=== PATIENT | female | born 2000 | race Caucasian/White ===

== ENCOUNTER 2021-03-18 18:20 | Outpatient (CLI) | payer OTHER, SELFPAY ==
[2021-03-18 19:53] LABS: SARS-CoV-2 RNA PCR Negative (Negative)
== END 2021-03-18 18:21 | disposition home or self-care (01) ==
LOC: CHSLAB 18:24
PROVIDERS: PCP Family Medicine; Visit Provider Family Medicine
DX: J02.9 Acute pharyngitis, unspecified (principal); Z20.822 Contact with and (suspected) exposure to COVID-19
CPT/HCPCS: 87081; 87880; C9803; U0003; U0005

== ENCOUNTER 2021-04-13 16:22 | Outpatient (CLI) | payer OTHER, SELFPAY ==
[2021-04-13 17:42] LABS: SARS-CoV-2 RNA PCR Positive (Negative)
== END 2021-04-13 16:23 | disposition home or self-care (01) ==
LOC: CHSLAB 16:24
PROVIDERS: PCP Family Medicine; Visit Provider Family Medicine
DX: U07.1 COVID-19 (principal)
CPT/HCPCS: C9803; U0003; U0005

== ENCOUNTER 2023-02-19 08:06 | Emergency (ER) | payer OTHER, SELFPAY ==
--- NOTE | ~2023-02-19 | CT_ITS ---
EXAMINATION: CT abdomen pelvis w con DATE: 02/19/2023 09:09 INDICATION: Generalized abdominal pain since 0400 hours TECHNIQUE: Computed tomography (CT) of the abdomen and pelvis was performed with 100 CC Omnipaque 350 intravenous contrast. Automated exposure control and iterative reconstruction technique were employe d. Exam dose: 910.32 mGy-cm total exam DLP. COMPARISON: None. FINDINGS: Prominent discoid atelectasis or scarring at the included base of the lingula. Normal heart size. No pericardial or pleural effusion. The liver, gallbladder, bile ducts, pancreas, pancreatic duct and spleen are unremarkable. Normal morphology of the adrenal glands. No renal mass lesion. Normal caliber of the abdominal aorta. No intraperitoneal or retroperitoneal or pelvic mass lesion or adenopathy or ascites. The uterus, adnexal areas and urinary bladder are unremarkable. 3 mm nonobstructing right renal calculus. No other urinary tract calculus or hydroureteronephrosis. The uterus and adnexal areas are unremarkable. There is slight free fluid in the posterior cul-de-sac which may be physiologic. The appendix is dilated up to 9 mm, with thickening of the wall, with minimal periappendiceal fat str anding. The findings are consistent with acute appendicitis. Included skeletal structures are unremarkable. IMPRESSION: Acute appendicitis; no perforation or abscess is evident 3 mm nonobstructing right renal calculus Reviewed, dictated and finalized at [facility] Reviewed, dictated and finalized at [facility].
[2023-02-19 08:08] VITALS: BP 153/86; PULSE 84; RESP 18; TEMP 36.6; O2SAT 98
[2023-02-19] MEDS: SODIUM CHLORIDE 0.9% IV 1,000 ML 999 ML IV CONT (08:31)
[2023-02-19] MEDS: KETOROLAC 30 MG/ML VIAL (*BKC) IV PUSH (08:32)
[2023-02-19] MEDS: ONDANSETRON INJ 4 MG/2 ML VIAL IV PUSH (08:32)
[2023-02-19 08:34] LABS: Basophils Absolute Auto 0.03 K/mm3 (0.00-0.10); Basophils Percent Auto 0.2 % (0.0-1.0); Eosinophils Absolute Auto 0.07 K/mm3 (0.02-0.50); Eosinophils Percent Auto 0.5 % (1.0-6.0); Hematocrit 40.3 % (35.0-49.0); Hemoglobin 13.4 g/dL (12.0-15.0); Immature Granulocyte Absolute 0.05 K/mm3 (0.00-0.00); Immature Granulocyte Percent A 0.4 % (0.0-0.0); Lymphocytes Absolute Auto 1.47 K/mm3 (1.10-4.50); Lymphocytes Percent Auto 10.7 % (18.0-42.0); Mean Corpuscular HGB Conc 33.3 g/dL (32.0-36.0); Mean Corpuscular Hemoglobin 29.8 pg (27.0-31.0); Mean Corpuscular Volume 89.6 fL (78.0-102.0); Mean Platelet Volume 11.5 fl (9.2-11.8); Monocytes Absolute Auto 0.66 K/mm3 (0.10-0.90); Monocytes Percent Auto 4.8 % (2.0-11.0); Neutrophils Absolute Auto 11.5 K/mm3 (1.7-7.2); Neutrophils Percent Auto 83.4 % (50.0-70.0); Platelet Count Result 156 K/mm3 (150-420); Red Cell Distribution Width 11.8 % (11.6-14.4); White Blood Count 13.7 K/mm3 (4.8-10.8)
[2023-02-19 08:36] LABS: Appearance Urine Clear (Clear); Bilirubin Urine Negative (Negative); Blood Urine 1+ (Negative); Color Urine Light Yellow (Yellow); Glucose Urine UA Negative (Negative); Ketones Urine Negative (Negative); Leukocyte Esterase Ur Trace LEU/UL (Negative); Nitrate Urine Negative (Negative); Protein Urine Negative (Negative); Specific Grav Ur 1.025 (1.010-1.020); Urobilinogen Urine 0.2 mg/dL (0.2-1.0)
[2023-02-19 08:38] LABS: Pregnancy On Board Control Positive; Urine Pregnancy Test Negative
[2023-02-19 08:42] LABS: Add Urine Microscopic? YES; Bacteria Urine Trace /hpf; RBC Urine 0-2 /hpf (0-2); Squamous Epithelial Cell Urine Moderate /hpf (Few)
[2023-02-19 08:49] LABS: INR 1.1; Partial Thromboplastin Time 26.7 SEC (23.90-30.70); Prothrombin Time 11.6 Seconds (9.50-12.10)
[2023-02-19 08:50] LABS: Alanine Aminotransferase 48 U/L (14-59); Albumin Level 3.8 g/dL (3.4-5.0); Alkaline Phosphatase 59 U/L (46-116); Anion Gap 11 mmol/L (8-16); Aspartate Amino Transferase 12 U/L (15-37); Bilirubin,Total 1.2 mg/dL (0.00-1.00); Blood Urea Nitrogen 12 mg/dL (7-18); Calcium 8.7 mg/dL (8.5-10.1); Carbon Dioxide 23 mmol/L (21-32); Chloride 107 mmol/L (98-108); Estimated CRCL calculation 145 ml/min; Estimated Glomerular Filt Rate > 60; Glucose 86 mg/dL (70-99); Lipase 17 U/L (16-77); Osmolality Calculated 290 mOsm/kg (285-295); Potassium 3.6 mmol/L (3.5-5.1); Sodium 141 mmol/L (136-145); Total Protein 7.3 g/dL (6.4-8.2)
[2023-02-19 08:55] LABS: Lactic Acid Reflex 0.4 mmol/L (0.4-2.0)
--- NOTE | 2023-02-19 09:20 | ED.ABDPAIN ---
HPI - Abdominal Pain General Chief Complaint: Abdominal Pain Stated Complaint: abdominal pain Time Seen by Provider: 02/19/23 08:12 Source: patient and family Mode of arrival: ambulatory Limitations: no limitations History of Present Illness HPI narrative: this 22-year-old female that presents with abdominal pain that started at 4:00 a.m. this morning and progressively worsened with some mild dysuria suprapubic and right lower quadrant discomfort with no flank pain no hematuria no fever chills no diarrhea or constipation. MD elicited complaint: abdominal pain Pertinent past history: none Onset (ago): hour(s) Pain Consistency: constant Location: periumbilical, RLQ and suprapubic Severity: moderate Pain scale (0-10): 6 Quality: aching Related Data Home Medications Medication Instructions Recorded Confirmed No Home Medications 02/19/23 02/19/23 Allergies Allergy/AdvReac Type Severity Reaction Status Date / Time No Known Allergies Allergy Verified 02/19/23 08:18 Review of Systems Review of Systems: All systems reviewed & are unremarkable except as noted in HPI and below PMFSH Past Medical History Medical History Patient denies medical problems Exam Const: General: healthy appearing Nutritional Appearance: well nourished Orientation/consciousness: patient oriented x3 Limitations: no limitations HENMT: Head: normal to inspection Eyes: Conjunctivae: conjunctivae normal Neck: Neck: normal visual inspection Chest: Chest palpation & inspection: normal inspection of the chest Resp: Effort & Inspection: normal respiratory effort Auscultation: clear to auscultation bilaterally Cardio: Rate: regular rate Rhythm: regular rhythm GI: GI Palp: Yes Soft to palpation and Yes Tenderness to palpation present (GI) : Other: suprapubic tenderness Back/Spine/Pelvis: Back: no CVA tenderness Skin: General skin exam: normal color Rashes: no rashes Neuro: General: patient oriented x3 and moves all extremities Extrem: General: normal to inspection Psych: Mental Status: mental status grossly normal Affect: normal affect Course Course Emergency Course: labs reviewed with patient and family are white count is elevated, and UA does show that she has urinary tract infection, patient was given IV Toradol and Zofran which helped relieve her pain and nausea and CT scan was reviewed with patient and family Which shows acute appendicitis, patient started on ceftriaxone IV and Flagyl and was given an initial dose of pain medication with 4mg of morphine. spoke to Dr. Dumont surgeon at [facility] at accepted the patient for transfer to [facility]. Vital Signs Vital signs: Vital Signs Temperature 36.6 C 02/19/23 08:08 Pulse Rate 84 02/19/23 08:08 Respiratory Rate 18 02/19/23 08:08 Blood Pressure 153/86 H 02/19/23 08:08 Pulse Oximetry 98 02/19/23 08:08 Oxygen Delivery Room Air 02/19/23 08:08 Temperature 36.6 C 02/19/23 08:08 Pulse Rate 84 02/19/23 08:08 Respiratory Rate 18 02/19/23 08:08 Blood Pressure 153/86 H 02/19/23 08:08 Pulse Oximetry 98 02/19/23 08:08 Oxygen Delivery Room Air 02/19/23 08:08 MDM - Abdominal Pain Lab Data 02/19/23 08:16 02/19/23 08:16 Labs: Lab Results 02/19/23 02/19/23 Range/Units 08:16 08:17 WBC 13.7 H (4.8-10.8) K/mm3 RBC 4.50 (4.20-5.40) M/mm3 Hgb 13.4 (12.0-15.0) g/dL Hct 40.3 (35.0-49.0) % MCV 89.6 (78.0-102.0) fL MCH 29.8 (27.0-31.0) pg MCHC 33.3 (32.0-36.0) g/dL RDW 11.8 (11.6-14.4) % Plt Count 156 (150-420) K/mm3 MPV 11.5 (9.2-11.8) fl Immature Gran % (Auto) 0.4 H (0.0-0.0) % Neut % (Auto) 83.4 H (50.0-70.0) % Lymph % (Auto) 10.7 L (18.0-42.0) % Eagle % (Auto) 4.8 (2.0-11.0) % Eos % (Auto) 0.5 L (1.0-6.0) % Baso % (Auto) 0.2 (0.0-1.0) % Lymph # (Auto) 1.47
[2023-02-19] MEDS: metroNIDAZOLE 500 MG/ISO 100ML 500 MG/100 ML BAG 100 MG IVPB (09:40)
[2023-02-19] MEDS: MORPHINE SULFATE (*CRX) 4 MG/ML INJ IV PUSH (09:42)
[2023-02-19 09:49] VITALS: BP 163/88; PULSE 82; RESP 20; O2SAT 100
[2023-02-19 11:02] VITALS: BP 145/82; PULSE 81; RESP 20; TEMP 36.7; O2SAT 100
== END 2023-02-19 11:25 | disposition short-term general hospital (02) ==
PROVIDERS: Emergency Provider Emergency Medicine; PCP Family Medicine
DX: K35.80 Unspecified acute appendicitis (principal); N30.00 Acute cystitis without hematuria
CPT/HCPCS: 36415; 74177; 80053; 81001; 81025; 83605; 83690; 85025; 85610; 85730; 96361; 96365; 96367; 96375; 99285; J0696; J1885; J2270; J2405; J7030; Q9967

== ENCOUNTER 2023-02-19 12:10 | Observation (INO) | payer OTHER, SELFPAY ==
[2023-02-19] VITALS (10 sets, daily range): BP systolic 121–155; BP diastolic 64–88; PULSE 67–92; RESP 14–20; TEMP 36.2–36.6; O2SAT 95–100; BMI 32.7
--- NOTE | 2023-02-19 12:25 | ADMGEN ---
This patient, Radha Lui, was admitted to 2 Medical Room 261-01. Patient/family oriented to hospital policies and general routines including ID bracelet, bed and alarms, visiting hours, pain management, procedures, bathroom and other care routines, personal items, smoking policy, room service/diet, and visiting hours. Report received from Mane from [facility] Information on how to activate the Rapid Response Team has been discussed. Patient/Family are encouraged to report perceived risks to care and to ask questions if they do not understand what they are told or what they should do.
--- NOTE | 2023-02-19 12:29 | PM.IMHP ---
H&P: HPI History of Present Illness Date/Time: 02/19/23 12:29 Chief Complaint: Acute appendicitis Narrative: Patient is an otherwise healthy 22-year-old female who presented to the [facility] Emergency Room this morning with a 6hour history of the sudden onset periumbilical abdominal pain. She denied any nausea or vomiting and no diarrhea. No fever at home. Workup in the emergency room and started [place] [address] scan abdomen pelvis showed a appendix which is dilated to 9mm in diameter with some thickening of the wall and some subtle periappendiceal inflammatory changes. This was consistent with acute appendicitis. Patient was transferred from [facility] to [facility] for further surgical management. She was given Rocephin and Flagyl for IV antibiotics at the emergency room prior to transfer. Review of Systems Review of Systems: The remainder of the review of systems to include constitutional, HEENT, cardiovascular, respiratory, GI, , integumentary, musculoskeletal, endocrine, immunologic, hematologic, psychiatric, and neurologic are all negative except for which is mentioned above in the HPI. [facility] Past Medical History Medical History Patient denies medical problems Meds Home Medications and Allergies Home Medications Medication Instructions Recorded Confirmed Type No Home Medications 02/19/23 02/19/23 History Allergies Allergy/AdvReac Type Severity Reaction Status Date / Time No Known Allergies Allergy Verified 02/19/23 08:18 Exam Const: General: comfortable and no acute distress Eyes: General: appearance normal, both eyes and all related structures Sclera: sclerae normal Pupils: Equal, round and reactive pupils present Neck: Neck: supple and no JVD Resp: Effort & Inspection: normal respiratory effort Auscultation: clear to auscultation bilaterally Cardio: Rate: regular rate Rhythm: regular rhythm GI: Other: Abdomen is soft moderately obese. Mild periumbilical tenderness with more pronounced tenderness in the right lower quadrant. No guarding or generalized peritoneal signs are noted. No masses appreciated no hernias are noted. Neuro: General: gait normal Speech: normal speech Motor exam (neuro): 5/5 motor strength present throughout Extrem: General: normal to inspection Psych: Mental Status: mental status grossly normal Affect: normal affect H&P: Results Imaging CT scan - abdomen: Radiologist's impression: EXAMINATION: CT abdomen pelvis w con DATE: 02/19/2023 09:09 INDICATION: Generalized abdominal pain since 0400 hours TECHNIQUE: Computed tomography (CT) of the abdomen and pelvis was performed with 100 CC Omnipaque 350 intravenous contrast. Automated exposure control and iterative reconstruction technique were employed. Exam dose:? 910.32 mGy-cm total exam DLP.? COMPARISON: None. FINDINGS: Prominent discoid atelectasis or scarring at the included base of the lingula. Normal heart size. No pericardial or pleural effusion. The liver, gallbladder, bile ducts, pancreas, pancreatic duct and spleen are unremarkable. Normal morphology of the adrenal glands. No renal mass lesion. Normal caliber of the abdominal aorta. No intraperitoneal or retroperitoneal or pelvic mass lesion or adenopathy or ascites. The uterus, adnexal areas and urinary bladder are unremarkable. 3 mm nonobstructing right renal calculus. No other urinary tract calculus or hydroureteronephrosis. The uterus and adnexal areas are unremarkable. There is slight free fluid in the posterior cul-de-sac which may be physiologic. The appendix is dilated up to 9 mm, with thickening of the wall, with minimal periappendiceal fat stranding. The findings are consistent with acute appendicitis. Included skeletal structures are unremarkable. IMPRESSION:? Acute appendicitis; no
--- NOTE | 2023-02-19 12:38 | WPDHPUPDATE1 ---
History and Physical Update Update Date/Time: 02/19/23 12:38 History and Physical has been reviewed, including an updated exam of the patient. There are NO changes in the patient's condition. Risks, benefits, and alternatives have been discussed and questions answered. Patient agrees to proceed with procedure.
[2023-02-19] MEDS: DEXTROSE 5%/0.9% SOD CHL 1,000 ML 100 ML IV CONT (13:42)
[2023-02-19] MEDS: MORPHINE SULFATE (*CRX) 2 MG/ML INJ IV PUSH (13:55)
--- NOTE | 2023-02-19 13:59 | P.PNAN_ITS ---
Anes - Eval Pre Procedure Procedure: Lap Appy Date/Time: 02/19/23 13:59 Surgeon: Dr Dumont Pre Op Diagnosis: appendicitis Patient Data Age: 22 Gender: F Height: 1.7 m Weight: 94.8 kg Allergies Allergy/AdvReac Type Severity Reaction Status Date / Time No Known Allergies Allergy Verified 02/19/23 08:18 Home Medications Medication Instructions Recorded Confirmed Type No Home Medications 02/19/23 02/19/23 History Patient hx anesthesia problems: none Family hx anesthesia problems: none Results Review: All pre-operative results and documents have been reviewed as part of the pre- operative evaluation. [facility] Past Medical History Medical History Patient denies medical problems Family History Family History Other Breast cancer Grandparent Skin cancer Social History Social History Smoking packs per day: 0.5 Smoking cigarettes per day: 10.0 Years smoked: 3 Smoking pack-years: 1.50 Smoking status: Former smoker Tobacco type: cigarettes Second hand tobacco smoke exposure: No Additional smoking assessment comments: former cigarette smoker, currently uses vape Alcohol intake: never Substance use: current Substance use type: marijuana Last use: 02/18/23 Lack of Transportation: No Lack of Food: Never True Current Housing: I Have Housing Concerned About Future Housing: No Difficulty Paying Gas/Electric Bills: No Difficulty Paying for Meds: No Currently Unemployed: No Education: High School Diploma/GED Difficulty w/ Childcare or Family Care: No Spiritual care concerns: No Exam Day of Procedure 02/19/23 13:59
--- NOTE | 2023-02-19 14:40 | PC.NURSE ---
Spoke with Gabriella in Pre-op and gave report on patient. Let her know that patient has not had type and screen done incase of emergency transfusion. Gabriella states she will speak with Provider when he is out of the OR.
--- NOTE | 2023-02-19 15:12 | P.PNAN_ITS ---
Anes - Eval Final PreProcedure Day of Procedure 02/19/23 15:12 Patient weight: overweight Heart: regular rate and rhythm Lungs: clear to auscultation Airway: Mallampati scale class II Neurological: alert and oriented Last oral intake: >/= 8 hours ASA classification: II Emergent: no Anesthetic plan: proceed Anesthesia type and monitoring: general ETT and standard monitoring Results Review: All pre-operative results and documents have been reviewed as part of the pre- operative evaluation. Informed Consent: The patient's anesthetic plan and its attendant risks and benefits were discussed with the patient/family/POA. Questions were solicited and answers provided to the satisfaction of the patient/family/POA.
[2023-02-19] MEDS: LIDO 1%/EPINEPHRINE 1:100,000 20 ML VIAL 10 ML INFILTRATE (16:18)
[2023-02-19] MEDS: LACTATED RINGERS 1,000 ML 30 ML IV CONT ×2 (16:49→17:24)
--- NOTE | 2023-02-19 16:57 | P.OP_ITS ---
Procedure Note - Detailed Date of Procedure 02/19/23 Pre-op Diagnosis Acute appendicitis Post-op Diagnosis Same Procedure Performed Laparoscopic appendectomy Surgeon Milad Dumont MD [employer] [facility] Anesthesia General Indications Patient is a 22-year-old female presented to outside emergency room with a 6hour history of a sudden onset of periumbilical abdominal pain. Workup in the emergency room [place] [address] scan abdomen pelvis showed a dilated appendix with some periappendiceal inflammation consistent with acute appendicitis. She was transferred [facility] for further surgical management. She presents now for emergent laparoscopic appendectomy. Findings The appendix was moderately inflamed in the distal 1/2. There is no perforation or gangrene of the appendix. There is no periappendiceal abscess. The base of the appendix appeared to be normal. Description of Procedure After informed consent was obtained patient brought to the operating room she was placed supine position and general endotracheal anesthesia was administered. The abdomen is then prepped and draped in usual sterile fashion after placement of a Lao catheter. Time-out was then performed correctly identifying the patient as well as the procedure to be performed verified she was already given scheduled IV antibiotics. Under the abdomen left upper quadrant likely a 5mm Optiview port. Once inside the abdomen I insufflated to adequate pneumoperitoneum of 15mmHg of CO2. I then placed a 5mm suprapubic trocar port, a 5mm right lower quadrant trocar port, and a 12mm periumbilical trocar port all under direct visualization. I was able to identify the appendix in the right lower quadrant the abdomen. The appendix was normal at the base but the distal 1/2 of the appendix was moderately inflamed. There is no gangrene or perforation of the appendix. There was no periappendiceal abscess. With a laparoscopic grasper held the appendix up made a defect through the mesoappendix just at the base with a laparoscopic dissecting instrument. A 45mm Endo-ISMAEL stapler was then used to divide the appendix flush with the cecum. A vascular reload to the laparoscopic stapler was then used to divide the mesoappendix. The appendix was then placed into Endo-Catch bag and brought out through the periumbilical trocar port site. The appendix was passed off table sent to pathology for examination. I then inspected both staple lines and they were both hemostatic. I then removed all the trocar ports under visualization all port sites appeared hemostatic. I then allowed the abdomen decompress. I then closed the 12mm periumbilical trocar port fascial defect utilizing 0 Vicryl suture placed in a figure-eight fashion. The skin edges not the port sites were then approximated utilizing a running subcuticular 4 Monocryl suture. The incisions were then cleaned the skin glue was applied. The patient tolerated the procedure well no complications. All sponges, needles, and instrument counts were correct at the end procedure. EBL was __ 10 _cc. The patient was awakened and taken to recovery in stable and satisfactory condition. Implants None Estimated Blood Loss 10 Drains No Packing No Pathology Yes (Appendix to pathology) Complications No immediate complications Condition Stable Disposition PACU [facility] Billing Surgery - Charge Forward: Surgery Billing
[2023-02-19] MEDS: fentaNYL CITRATE INJ (*CRX) 100 MCG/2 ML VIAL 25 MCG IV PUSH ×4 (17:09→17:26)
[2023-02-19] MEDS: ONDANSETRON INJ 4 MG/2 ML VIAL IV PUSH (17:22)
[2023-02-19] MEDS: diphenhydrAMINE HCl INJ 50 MG/ML VIAL 25 MG IV PUSH (17:37)
--- NOTE | 2023-02-19 19:38 | PC.NURSE ---
tried to contact Dr. Dumont through exchange, unable to get through. Left message and call back number with cell phone to clarify PRN roxicodone and morphine, both in for pain 7-10
[2023-02-19] MEDS: oxyCODONE HCL (*CRX) 5 MG TAB IR PO (20:40)
[2023-02-20] MEDS: oxyCODONE HCL (*CRX) 5 MG TAB IR PO ×2 (02:53→11:10)
[2023-02-20 06:00] VITALS: BP 154/92; PULSE 71; RESP 21; TEMP 36.1; O2SAT 100
[2023-02-20] MEDS: ACETAMINOPHEN 500 MG TABLET 1000 MG PO (06:39)
[2023-02-20 09:55] VITALS: BP 147/88; PULSE 95; RESP 16; TEMP 36.7; O2SAT 100
--- NOTE | 2023-02-20 10:17 | PM.PNGS ---
Progress Note: A&P Assessment and Plan (1) Acute appendicitis: Qualifiers: Acute appendicitis type: unspecified acute appendicitis type Qualified Code(s): K35.80 - Unspecified acute appendicitis Code(s): K35.80 - Unspecified acute appendicitis Status: Inactive Assessment and Plan: Patient is doing very well after laparoscopic appendectomy yesterday. He was discharged home today with follow-up in the office in about 2 weeks. Discharge instructions as per discharge orders. Subjective Subjective Date/Time Seen: 02/20/23 10:17 Post Op day: 1 (Status post laparoscopic) Interval history: Patient is doing well. Her right lower quadrant pain is not resolved. She is just having some mild tenderness around her laparoscopic port site incisions. No nausea or vomiting. She tolerated regular diet without difficulty. She has only been taking some Tylenol for postoperative pain. Exam GI: Other: Abdomen is soft and nondistended. Port site incisions are healing well without redness or drainage. Expected mild tenderness around the port sites but right lower quadrant tenderness has resolved. Objective Data Vital Signs Vital Signs: Vital Signs - 24 hr 02/19/23 14:00 02/19/23 16:49 02/19/23 17:00 Temperature 36.4 C L 36.6 C Pulse Rate 68 92 85 Respiratory Rate 16 17 20 Blood Pressure 121/64 155/80 H 149/83 H Pulse Oximetry 100 100 100 Oxygen Delivery Simple Face Mask Simple Face Mask Oxygen Flow Rate 6 6 02/19/23 17:05 02/19/23 17:15 02/19/23 17:30 Temperature Pulse Rate 73 75 Respiratory Rate 14 14 Blood Pressure 145/77 H 141/88 H Pulse Oximetry 99 95 Oxygen Delivery Room Air Room Air Room Air Oxygen Flow Rate 02/19/23 17:45 02/19/23 17:55 02/19/23 18:20 Temperature 36.2 C L Pulse Rate 79 76 67 Respiratory Rate 18 16 16 Blood Pressure 138/86 130/72 124/72 Pulse Oximetry 96 97 99 Oxygen Delivery Room Air Room Air Oxygen Flow Rate 02/19/23 18:46 02/19/23 22:25 02/19/23 20:30 Temperature 36.4 C 36.3 C L Pulse Rate 70 75 Respiratory Rate 16 20 Blood Pressure 135/74 150/82 H Pulse Oximetry 99 99 Oxygen Delivery Room Air Oxygen Flow Rate 02/20/23 06:00 02/20/23 08:10 02/20/23 09:55 Temperature 36.1 C L 36.7 C Pulse Rate 71 95 Respiratory Rate 21 H 16 Blood Pressure 154/92 H 147/88 H Pulse Oximetry 100 100 Oxygen Delivery Room Air Oxygen Flow Rate Intake/Output Intake/Output: Intake & Output 02/17/23 02/18/23 02/19/23 02/20/23 23:59 23:59 23:59 23:59 Intake Total 500 620 Output Total 150 900 Balance 350 -280 Meds/Results Medications: Active Medications Generic Name Dose Route Start Last Admin Trade Name Freq PRN Reason Stop Dose Admin Acetaminophen 1,000 mg 02/19/23 18:09 02/20/23 06:39 Acetaminophen 500 Mg Tablet PO 1,000 mg Q6H PRN Administration Mild Pain (1-3) or Fever Dextrose/Sodium Chloride 1,000 mls @ 100 mls/hr 02/19/23 12:25 02/19/23 13:42 Dextrose 5% Sodium Chloride 0.9% IV CONT 100 mls/hr .Q10H AURELIO Administration Morphine Sulfate 2 mg 02/19/23 12:22 02/19/23 13:55 Morphine Sulfate (*Crx) 2 Mg/Ml Inj IV PUSH 2 mg Q4H PRN Administration Pain Rated 7-10 Ondansetron HCl 4 mg 02/19/23 12:22 Ondansetron Inj 4 Mg/2 Ml Vial IV PUSH Q6H PRN Nausea And Vomiting Ondansetron HCl 4 mg 02/19/23 15:13 02/19/23 17:22 Ondansetron Inj 4 Mg/2 Ml Vial IV PUSH 4 mg ONCE PRN Administration Nausea Oxycodone HCl 5 mg 02/19/23 18:09 02/20/23 02:53 Oxycodone Hcl (*Crx) 5 Mg Tab Ir PO 5 mg Q6H PRN Administration Pain Rated 7-10
--- NOTE | 2023-02-22 13:14 | PM.DS ---
DS: Admitting Diagnosis Discharge Date 02/20/23 Admitting Diagnosis Acute appendicitis DS: Discharge Diagnosis Discharge Diagnosis (1) Acute appendicitis: Qualifiers: Acute appendicitis type: unspecified acute appendicitis type Qualified Code(s): K35.80 - Unspecified acute appendicitis Code(s): K35.80 - Unspecified acute appendicitis Status: Inactive DS: Summary Hospital Course Reason for hospitalization: Acute appendicitis Hospital Course: The patient initially presented to outside hospital emergency room where she complained of having the mid abdominal pain which eventually localized right lower quadrant of the abdomen. Workup included a CBC which showed a leukocytosis and then a CT scan and pelvis showed dilated appendix with some mild periappendiceal inflammatory changes. She was then transferred air some hospital likely admitted to the surgical floor. Once surgical floor examined her and she had a clinical exam consistent with acute appendicitis. She was then taken to the operating room later that day for an uncomplicated laparoscopic appendectomy. postoperatively shoe had a uneventful course to recovery room then back up to the surgical floor for routine observation. On the floor she was able to tolerate clear liquids and ambulate the bathroom that difficulty. Her pain was well controlled on oral pain medications. The next day examine her wounds and they were healing well without any evidence of wound complications in the port sites. She tolerated regular diet and was discharged home in improved condition. Status at Discharge Functional status at discharge: independent ambulation Time Spent with Patient Time attestation: Total time spent providing and/or coordinating discharge services: Exam Const: General: cooperative, healthy appearing and comfortable Resp: Effort & Inspection: normal respiratory effort and able to speak in complete sentences Cardio: Rate: regular rate Rhythm: regular rhythm GI: Other: Abdomen is soft and nondistended. Port site incisions are healing well without redness or drainage. No port site hernias. Right lower quadrant tenderness has resolved. Neuro: General: patient oriented x3 Cranial nerves: Yes CN's II-XII intact bilaterally Speech: normal speech Psych: Appearance: grossly normal and well kempt Mental Status: mental status grossly normal DS: Data Data Completed and Pending Pending studies at discharge: Pending at discharge 02/19/23 16:11 Surgical [PTH] Routine Discharge Plan Discharge Attending physician on discharge: Milad Dumont Consulting providers: Roger Martin; Zena Casey Discharging Clinician: Milad Dumont Patient Disposition: Home, Self-Care Activity: may shower and no straining Diet: regular Wound Care Instructions: remove dressing to shower Discharge Instructions: May discharge home when tolerating regular diet and pain is okay on oral pain medications. Must be afebrile and incisions healing without any redness or drainage. No lifting more than 10 to 15 lb for 2 weeks. May shower but do not soak the incision under water for 2 weeks. Follow-up in the office in 2 weeks. May use Tylenol ibuprofen [id number] for pain as needed at home. Prescription for narcotic pain medications sent to pharmacy and patient may worm picker the medications if she wishes. Patient Instructions: Antibiotic Form Stand Alone Forms: General Discharge Information Follow-up/Referrals: Milad Dumont MD [Physician] - (Follow-up with Dr. Dumont the office in 2 weeks. Call [phone] for an appointment.) Discharge Medications: New hydrocodone-acetaminophen 5-325 mg tablet 1 tablet PO Q6H PRN (Reason: pain) Qty: 10 0RF No Action No Home Medications Date of admission: 02/19/23 12:10 Primary Care Provider: Ab Yarbrough Admitting Provider: Milad Dumont
== END 2023-02-20 11:15 | disposition home or self-care (01) ==
PROVIDERS: Admitting Provider Surgery; PCP Family Medicine; Visit Provider Surgery
PROC: 0DTJ4ZZ Resection of Appendix, Percutaneous Endoscopic Approach (ICD-10-PCS; CPT 44970; principal; 2023-02-19 16:00)
DX: K35.80 Unspecified acute appendicitis (principal); D72.829 Elevated white blood cell count, unspecified; E66.9 Obesity, unspecified; Z68.32 Body mass index [BMI] 32.0-32.9, adult; F17.290 Nicotine dependence, other tobacco product, uncomplicated; F12.90 Cannabis use, unspecified, uncomplicated
CPT/HCPCS: 44970; 88304; A9270; G0378; G0379; J0330; J1200; J2250; J2270; J2405; J2704; J2710; J3010; J7042; J7120